=== PATIENT | female | born 1965 | race Caucasian/White ===

== ENCOUNTER → 2024-02-21 09:08 | Outpatient (REF) | payer OTHER, SELFPAY | LOC: RAD 09:08 | PROVIDERS: ATTENDING PHYSICIAN Nurse Practitioner Family | DX: R10.9 Unspecified abdominal pain (principal) | CPT/HCPCS: 76770 ==

== ENCOUNTER → 2024-06-30 09:48 | Outpatient (REF) | payer OTHER, SELFPAY | LOC: RAD 09:48 | PROVIDERS: ATTENDING PHYSICIAN Registered Nurse; FAMILY PHYSICIAN Nurse Practitioner Family | DX: M85.89 Other specified disorders of bone density and structure, multiple sites (principal) | CPT/HCPCS: 77080 ==

== ENCOUNTER 2025-04-27 16:33 | Emergency (ER) | payer OTHER, SELFPAY ==
[2025-04-27 16:34] VITALS: BP 110/59
[2025-04-27 19:04] VITALS: BMI 22.5
[2025-04-27 19:06] VITALS: BP 129/81
--- NOTE | 2025-04-27 19:31 | ED.GENMED ---
History of Present Illness
General
Chief Complaint: Musculo-Skeletal Complaint
Source: patient
Exam Limitations: none
Time Seen by Provider: 04/27/25 18:05
Nursing documentation reviewed up to this point in time: agreed with
History of Present Illness
History of Present Illness:
see MDM
Review of Systems
Review of Systems
Allergies reviewed?: Yes
All Other Systems: Not applicable
Phy Exam
Physical Exam
Physical Exam:
GENERAL: Alert , in no apparent distress, comfortable at rest
HEAD: NCAT
CV: 2+ DP PULSES B/L
NEUROLOGICAL: Alert and oriented, no focal neuro deficits, , 5/5 strength, sensation intact, ambulation slight limp right leg
SKIN: Warm and dry, bruising
MUSCULOSKELETAL: moderate STS right ankle with tenderness to malleolus laterally; pain with inversion and eversion;
no tenderness at the base of the 5th metatarsal, no other foot tenderness
no knee/prox tib/fib tenderness, full painless ROM;
PSYCH: Normal and appropriate interaction.
Course
Orders/Labs/Results
Orders:
Orders
04/27/25 16:38
Ankle, Right 3 view CR [CR Ankle - Right Min 3 Views *] Urgent
Comment:
Reason For Exam: pain injury
Vital Signs
Initial and Last Documented VS:
Initial Vital Signs
Temp Pulse Resp BP Pulse Ox
36.6 C 53 16 110/59 100
04/27/25 16:34 04/27/25 16:34 04/27/25 16:34 04/27/25 16:34 04/27/25 16:34
Last Documented Vital Signs
Temp Pulse Resp BP Pulse Ox
36.6 C 62 18 129/81 99
04/27/25 16:34 04/27/25 19:06 04/27/25 19:06 04/27/25 19:06 04/27/25 19:36
MDM/Problems Addressed
Differential Diagnosis Includes:
see MDM
MDM/Problems Addressed:
Note:
CHIEF COMPLAINT(S)
Ankle injury due to a pickleball game incident.
HISTORY OF PRESENT ILLNESS
The patient is a 59-year-old female who presented with an ankle injury sustained during a pickleball game. The incident occurred earlier today when the patient jumped to hit a ball and landed awkwardly, resulting in immediate pain in the ankle. The
patient described hearing a sound at the time of the injury, and subsequently felt nauseated. Upon examination and imaging, the patient was diagnosed with an avulsion fracture of the fibula. The injury is characterized by a small piece of bone being
pulled off by a ligament due to the twisting motion of the ankle. The patient has been applying ice to the affected area continuously and took ibuprofen (Advil) for pain management. She reports that the pain is primarily localized to the ankle and
fears applying weight on it.
PAST MEDICAL AND SURGICAL HISTORY
The patient mentioned a past consultation with [facility] for a different condition (unspecified).
SOCIAL [employer]ERMINANTS AFFECTING HEALTH
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
MEDICATIONS
Ibuprofen (Advil): Taken for pain relief, two tablets as needed, every eight hours.
PHYSICAL EXAM
- Ankle: Avulsion fracture of the fibula diagnosed via imaging.
- Overall appearance of the foot appeared to correspond with the described mechanism of injury.
- Nursing notes reviewed and vital signs reviewed.
PROBLEM LIST
Acute:
- Avulsion fracture of the fibula
PLAN
- Educate the patient on avulsion fracture and its implications.
- Advise partial weight-bearing as tolerated, anticipating discomfort in the initial days.
- Provide a walking boot to assist in partial weight-bearing once pain allows.
- Demonstrate the use of crutches or a walker, whichever is available and preferred by the patient.
- Provide contact information for [facility] for follow-up to monitor healing and ligament condition.
- Recommend continued use of ibuprofen for inflammation and pain, as needed.
- Offer a medical note for work adjustments to accommodate the inability to drive next week.
- Advise rest and elevation of the foot when possible to alleviate swelling.
DIFFERENTIAL DIAGNOSIS
The Differential Diagnosis includes, in no particular order and is not limited to:
1. Avulsion fracture of the fibula
2. Ligament sprain
3. Ankle dislocation
4. Achilles tendon injury
5. Other bone fractures (e.g., talus, calcaneus)
6. Ankle ligament tear
7. Peroneal tendon injury
8. Lateral collateral ligament injury
9. High ankle sprain
10. Compartment syndrome
59 y/o F
here with R lateral ankle pain following inversion injury while playing pickleball today
has pain/swelling laterally
partial weight bearing
advil prior to arrival, placing ice o nit
no other injuries
xray indep reviewed with avulsion fx of distal fibula
recommend ortho boot and WBAT with walker or crutches
f/u with ortho
*Pulse Oximetry
SaO2: 99
Oxygen Mode of Delivery: Room air
Patient hypoxic: no (100)
*Critical Care Note
Total Time (30-74mins, 75-104mins- exclusive of procedures): Not Applicable
ED Attending Note
-
Portions of this chart may have been created with voice recognition software.� Occasional wrong word or��sound alike� substitutions may have occurred due to the inherent limitations of voice recognition software.
Discharge Plan
Departure
Patient Disposition: Home (Routine Discharge)
Date of Disposition: 04/27/25
Time of Disposition: 19:45
Patient with high blood pressure during this ER visit?: No
Condition: Fair
Covid-19: Not Applicable
Discharge Problem:
Fracture of distal end of fibula
Instructions: Ankle Fracture (DC)
Prescriptions:
No Action
ibuprofen [Motrin] 400 mg Tablet
400 mg PO Q6H PRN (Reason: pain)
Referrals:
UNKNOWN - PT DOES,NOT KNOW [Family Provider]
Jalen Watters MD [Active, Orthopedics] - Follow up in 5-7 days
Stand Alone Forms: Return to Work
Activity Restrictions/Additional Instructions:
YOU BROKE YOUR DISTAL FIBULA
ELEVATE, ICE OFF AND ON
WEAR THE BOOT WHEN UP
PARTIAL WEIGHT BEARING TOLERATED IN THE BOOT WITH WALKER OR CRUTCHES
MOTRIN EVERY 8H OURS 600 MG
CALL ORTHO TOMORROW FOR APPT
RETURN FOR PROBLEMS
Interventions
Interventions:
*Risk Screen - Suicide Last Done: 04/27/25 16:34
*General Assessment Last Done: 04/27/25 19:00
*Neglect/Abuse Screening Last Done: 04/27/25 16:34
*ED- Fall Risk Assessment Last Done: 04/27/25 19:00
*ED COVID-19 Vaccine History Last Done: 04/27/25 19:00
*Nursing Disposition Last Done: 04/27/25 19:45
ED-Musculoskeletal Assessment Last Done: 04/27/25 19:11
Discharge Date and Time
Discharge Date/Time: 04/27/25 20:04
Print Language: WELSH
== END 2025-04-27 20:04 | disposition home or self-care (01) ==
LOC: EMR 16:33
PROVIDERS: EMERGENCY PHYSICIAN Emergency Medicine
DX: S82.831A Other fracture of upper and lower end of right fibula, initial encounter for closed fracture (principal); S90.01XA Contusion of right ankle, initial encounter; R11.0 Nausea; X50.1XXA Overexertion from prolonged static or awkward postures, initial encounter; Y93.69 Activity, other involving other sports and athletics played as a team or group; Z85.3 Personal history of malignant neoplasm of breast
CPT/HCPCS: 99283; 29515; 73610